=== PATIENT | female | born 2000 | race American Indian/Alaskan Native ===

== ENCOUNTER → 2018-01-29 09:42 | Outpatient (CLI) | payer MEDICAID, OTHER, SELFPAY | PROVIDERS: Visit Provider Family Medicine | DX: Z79.3 Long term (current) use of hormonal contraceptives (principal) | CPT/HCPCS: 77080 ==

== ENCOUNTER → 2018-04-07 11:15 | Outpatient (CLI) | payer MEDICAID, OTHER, SELFPAY | PROVIDERS: PCP Family Medicine; Visit Provider Family Medicine | DX: R06.00 Dyspnea, unspecified (principal) | CPT/HCPCS: 94010; 94060; 94726; 94729 ==

== ENCOUNTER → 2018-09-18 15:01 | Outpatient (CLI) | payer MEDICAID, OTHER, SELFPAY ==
--- NOTE | 2018-09-18 | DI.RAD.S_ITS ---
PROCEDURE: XR KNEE LT 3V INDICATIONS: left knee pain TECHNIQUE: 3 views of the knee were acquired. COMPARISON: None. FINDINGS: Bones: No fractures or dislocations. No suspicious bony lesions. No patella subluxation. Soft tissues: No joint effusion. No suspicious soft tissue calcifications. IMPRESSION: Unremarkable radiographic examination of left knee. Dictated by: Taco Trujillo M.D. on 09/18/2018 at 16:35 Approved by: Taco Trujillo M.D. on 09/18/2018 at 16:36
== END ==
PROVIDERS: PCP Family Medicine; Visit Provider Physician Assistant
DX: M25.562 Pain in left knee (principal)
CPT/HCPCS: 73562